=== PATIENT | male | born 1955 | race Caucasian/White ===

== ENCOUNTER 2016-07-04 08:25 | Day surgery (SDC) | payer OTHER ==
[~2016-07-04] VITALS: Ht 180.3 cm; Wt 85.7 kg
[~2016-07-04 08:25] MED LIST: 0.9% Sodium Chloride 1,000 ML IV SCH; ASPI-973 PO; IBUP800T28 PO; INSU100I8 SUBQ; LISI-567 PO; METF-496 PO; SIMV40TA5 PO; Sodium Chloride LOK Flush 10 mL Syringe IV PRN; fentaNYL-PF 50 mCg/mL 2 mL Inj IVPUSH PRN
[2016-07-04 08:47] VITALS: BP 132/77; PULSE 81; RESP 14; O2SAT 95
[2016-07-04 10:18] VITALS: BP 103/65; PULSE 71; RESP 16; O2SAT 95
[2016-07-04 10:29] VITALS: BP 115/64; PULSE 73; RESP 16; O2SAT 96
[2016-07-04 10:37] VITALS: BP 139/71; PULSE 74; RESP 16; O2SAT 96
--- NOTE | 2016-07-04 20:43 | ENDO ---
[address] [address] ENDOSCOPY PROCEDURE PATIENT: SILVERIO ESTES : 1955 MR#: [id number] ADMIT: 07/04/2016 JOB ID: [id number] PRIMARY PROVIDER: Yoel Zuluaga MD. PROCEDURE: Colonoscopy with cold forceps polypectomies. INDICATIONS: A 61-year-old male with a personal history of colon polyps, returning for surveillance. EQUIPMENT: PCF-H180 AL. SEDATION: 5 mg Versed and 100 mcg fentanyl. COMPLICATIONS: None identified. BOWEL PREPARATION: Fair. Adequate exam. PROCEDURE INFORMATION: After the risks and benefits were explained, written and verbal informed consent was obtained, the patient was brought into the endoscopy suite and placed into the left lateral decubitus position. Sedation was achieved using the above-stated medications with the addition of oxygen via nasal cannula. Digital rectal examination was accomplished. Moderate internal hemorrhoids were noted. No other pathology. The scope was introduced into the rectum and advanced to the cecum as identified by the appendiceal orifice and ileocecal valve. The scope was slowly withdrawn to carefully examine the mucosa for any defects or lesions. Retroflexed views were accomplished in the rectum. The colon was decompressed. The scope removed from the patient who tolerated the procedure well. FINDINGS: Throughout the mid colon, there were four diminutive polyps removed by way of cold forceps polypectomy. No other significant pathology was appreciated throughout. ENDOSCOPIC DIAGNOSIS: 1. Colon polyps. 2. Hemorrhoids. RECOMMENDATIONS: 1. Await histopathology. 2. Repeat colonoscopy in three years.
--- NOTE | 2016-07-05 11:07 | PATH ---
SURGICAL PATHOLOGY Attending Physician:Nannette Francis CASE STATUS: Signed Out PATIENT NAME: SILVERIO ESTES PID: [id number] : 1955 DATE COLLECTED:07/04/2016 15:04 SPECIMEN: Colon, Biopsy CLINICAL HISTORY: 1. COLON POLYPS FINAL DIAGNOSIS: 1.COLON POLYPS: TUBULAR ADENOMA INVOLVING ALL BIOPSY FRAGMENTS. ICD10 CODE D12.6 GROSS DESCRIPTION: The specimen is received in one formalin filled container labeled with the patient's name, sublabeled "colon polyps" and consists of 4 portions of tissue which aggregate to 0.3 x 0.3 x 0.2 CM. The specimen is entirely submitted in one cassette. 07/04/2016 [facility] MICRO DESCRIPTION: See diagnosis. ICD-9 CODES: CPT CODES: 1: 47559 Electronically Signed Out Kee Felipe MD [facility] [address], [place] [address] Technical component performed at [facility], [facility] [address], [address]
== END 2016-07-04 23:59 | disposition home or self-care (01) ==
LOC: END 08:25
PROVIDERS: ATTEND Internal Medicine Gastroenterology
DX: Z12.11 Encounter for screening for malignant neoplasm of colon (principal); D12.6 Benign neoplasm of colon, unspecified; K64.8 Other hemorrhoids; Z86.010 Personal history of colon polyps; E11.9 Type 2 diabetes mellitus without complications; B19.20 Unspecified viral hepatitis C without hepatic coma; Z79.84 Long term (current) use of oral hypoglycemic drugs; Z79.4 Long term (current) use of insulin; Z79.82 Long term (current) use of aspirin
CPT/HCPCS: 45380; 99153; G0500; J7030